=== PATIENT | female | born 1990 | race Hispanic/Latino ===

== ENCOUNTER 2023-07-06 10:32 | Emergency (ER) | payer SELFPAY ==
--- NOTE | 2023-07-06 11:08 | EDPHYS ---
Physician Documentation [facility] Name: Alida Somers Age: 33 yrs Sex: Female : 1990 Arrival Date: 07/06/2023 Time: 10:32 Bed IW3 Private MD: ED Physician Judson Zabala HPI: 07/06 11:10 This 33 yrs old Female presents to ER via Ambulatory with complaints of jh7 Ingrown Toenail. 11:10 Onset: The symptoms/episode began/occurred 1 week(s) ago. Associated signs and jh7 symptoms: Pertinent negatives: fever. Patient reports right ingrown toenail for the past week after her son stepped on her toe. Denies fever.. Historical: - Allergies: 11:08 No Known Allergies; hb - Home Meds: 11:08 None [Active]; hb - PMHx: 11:08 None; hb - PSHx: 11:08 section; hb - Immunization history:: Adult Immunizations up to date. - Social history:: Smoking status: Patient denies any tobacco usage or history of. ROS: 11:10 Constitutional: Negative for fever, chills, and weight loss, Eyes: Negative for injury, jh7 pain, redness, and discharge, Neck: Negative for injury, pain, and swelling, Cardiovascular: Negative for chest pain, palpitations, and edema, Respiratory: Negative for shortness of breath, cough, wheezing, and pleuritic chest pain, Abdomen/GI: Negative for abdominal pain, nausea, vomiting, diarrhea, and constipation, MS/Extremity: Negative for injury and deformity, Neuro: Negative for headache, weakness, numbness, tingling, and seizure. 11:10 Skin: Positive for R ingrown toenail. 11:10 All other systems are negative. Exam: 11:10 Constitutional: This is a well developed, well nourished patient who is awake, alert, jh7 and in no acute distress. Cardiovascular: Regular rate and rhythm with a normal S1 and S2. No gallops, murmurs, or rubs. Normal PMI, no JVD. No pulse deficits. Respiratory: Lungs have equal breath sounds bilaterally, clear to auscultation and percussion. No rales, rhonchi or wheezes noted. No increased work of breathing, no retractions or nasal flaring. MS/ Extremity: Pulses equal, no cyanosis. Neurovascular intact. Full, normal range of motion. Neuro: Awake and alert, GCS 15, oriented to person, place, time, and situation. Motor strength 5/5 in all extremities. Sensory grossly intact. Normal gait. 11:10 Skin: R great toenail: Toenail is discolored and beginning to fold inward on itself with mild erythema and swelling noted over the skin at the medial aspect of the nail. The area is tender to palpation.. Vital Signs: 11:06 BP 135 / 86; Pulse 79; Resp 16; Temp 97.7; Pulse Ox 100% on R/A; Weight 113.4 kg; hb Height 5 ft. 1 in. ; Pain 6/10; 11:06 Body Mass Index 47.24 (113.40 kg, 154.94 cm) hb 11:06 Pain Scale: Adult hb MDM: 10:52 Patient medically screened. [facility] 10:55 Differential diagnosis: ingrown toenail, cellulitis. Data reviewed: vital signs, nurses [facility] notes. Counseling: I had a detailed discussion with the patient and/or guardian regarding the historical points, exam findings, and any diagnostic results supporting the discharge/admit diagnosis, the need for outpatient follow up, a paper production engineer, to return to the emergency department if symptoms worsen or persist or if there are any questions or concerns that arise at home. Administered Medications: No medications were administered Disposition: 13:53 Co-signature as Attending Physician, Judson Zabala MD I reviewed the patient's care rn provided by the Advanced Practice Provider and agree with the diagnosis and treatment plan. Disposition Summary: 07/06/23 11:08 Discharge Ordered Location: Home [facility] Problem: new [facility] Symptoms: are unchanged [facility] Condition: Stable [facility] Diagnosis - Ingrown toenail [facility] Followup: [facility] - With: Private Physician - When: 2 - 3 days - Reason: Recheck today's complaints Discharge Instructions: - Discharge Summary Sheet [facility] - Ingrown Toenail [facility] Forms: - Medication Reconciliation Form [facility] - Thank You Letter [facility] - Antibiotic Education [facility] - Patient Portal Instructions [facility] - Leadership Thank You Letter [facility] Prescriptions: - mupirocin 2 % Topical ointment - apply 1 application by TOPICAL route 3 times per day for 7 days; 22 gram; jh7 Refills: 0, Product Selection Permitted - Bactrim DS 800-160 mg Oral Tablet - take 1 tablet by ORAL route every 12 hours for 10 days; 20 tablet; Refills: 0, jh7 Product Selection Permitted Signatures: Judson Zabala MD MD rn Baxter, Heather, RN RN Temi Calvo FNP METAL CHECKER 7 Corrections: (The following items were deleted from the chart) 11:08 11:08 PSHx: None; hb hb
--- NOTE | 2023-07-06 11:08 | ER ---
Nurse's Notes [facility] Name: Alida Somers Age: 33 yrs Sex: Female : 1990 Arrival Date: 07/06/2023 Time: 10:32 Bed IW3 Private MD: Diagnosis: Ingrown toenail Presentation: 07/06 11:06 Chief complaint: Right great toenail ingrown. Coronavirus screen: At this time, the hb client does not indicate any symptoms associated with coronavirus-19. Ebola Screen: No symptoms or risks identified at this time. Initial Sepsis Screen: Does the patient meet any 2 criteria? No. Patient's initial sepsis screen is negative. Does the patient have a suspected source of infection? No. Patient's initial sepsis screen is negative. Risk Assessment: Do you want to hurt yourself or someone else? Patient reports no desire to harm self or others. Onset of symptoms was July 06, 2023. 11:06 Method Of Arrival: Ambulatory hb 11:06 Acuity: LION 4 hb Triage Assessment: 11:08 General: Appears in no apparent distress. Behavior is calm, cooperative. Pain: Pain hb currently is 6 out of 10 on a pain scale. Neuro: Level of Consciousness is awake, alert, obeys commands, Oriented to person, place, time, situation. Cardiovascular: Patient's skin is warm and dry. Respiratory: Respiratory effort is even, unlabored, Respiratory pattern is regular, symmetrical. Historical: - Allergies: 11:08 No Known Allergies; hb - Home Meds: 11:08 None [Active]; hb - PMHx: 11:08 None; hb - PSHx: 11:08 section; hb - Immunization history:: Adult Immunizations up to date. - Social history:: Smoking status: Patient denies any tobacco usage or history of. Screenin:08 [facility] ED Fall Risk Assessment (Adult) Score/Fall Risk Level 0 - 2 = Low Risk hb Oriented to surroundings, Maintained a safe environment. Abuse screen: Denies threats or abuse. Denies injuries from another. Nutritional screening: No deficits noted. Tuberculosis screening: No symptoms or risk factors identified. Assessment: 11:08 General: See triage assessment. hb Vital Signs: 11:06 BP 135 / 86; Pulse 79; Resp 16; Temp 97.7; Pulse Ox 100% on R/A; Weight 113.4 kg; hb Height 5 ft. 1 in. ; Pain 04/10; 11:06 Body Mass Index 47.24 (113.40 kg, 154.94 cm) hb 11:06 Pain Scale: Adult hb ED Course: 10:33 Patient arrived in ED. rg4 10:52 Temi Ruiz FNP is [facility]. 7 10:52 Judson Zabala MD is Attending Physician. [facility] 11:08 Triage completed. hb 11:08 Arm band placed on. hb 11:08 Patient has correct armband on for positive identification. Provided Education on: . hb 11:08 No provider procedures requiring assistance completed. Patient did not have IV access hb during this emergency room visit. 11:13 Rain Stone, RN is Primary Nurse. hb Administered Medications: No medications were administered Medication: 11:08 VIS not applicable for this client. hb Outcome: 11:08 Discharge ordered by . [facility] 11:13 Discharged to home ambulatory. hb 11:13 Condition: stable 11:13 Discharge instructions given to patient, Instructed on discharge instructions, follow up and referral plans. medication usage, Demonstrated understanding of instructions, follow-up care, medications, wound care, Prescriptions given X 2. 11:13 Patient left the ED. hb Signatures: Rain Stone RN RN Cathi Cornejo 4 Temi uRiz FNP LIBRARY CUSTOMER SERVICE CLERK [facility] Corrections: (The following items were deleted from the chart) 11:08 11:08 PSHx: None; hb hb
[2023-07-06 11:41] VITALS: BP 135/86; TEMP 97.7; O2SAT 100
== END 2023-07-06 11:13 | disposition home or self-care (01) ==
LOC: ER 10:32
DX: L60.0 Ingrowing nail (principal)
CPT/HCPCS: 99283

== ENCOUNTER → 2023-12-18 | Emergency (ER) | payer SELFPAY ==
[~2023-12-18] MED LIST: NA CHLORIDE 0.9% 1,000 ML ONE
[2023-12-18 20:12] LABS: Absolute Lymphocytes (CBC) 2.6 K/uL (0.7-4.9); Hematocrit 37.4 % (36.0-45.0); Lymphocytes % 34.8 % (15.3-44.8); MCV 87.8 fL (80-100); MPV 7.2 fL (7.6-11.3); Platelets 330 thou/uL (152-406); RBC Red Blood Cell Count 4.26 M/uL (3.86-4.86)
[2023-12-18 20:17] LABS: Urine Bacteria None Seen /HPF (<20); Urine Bilirubin NEGATIVE (Negative); Urine Blood Negative (Negative); Urine Clarity Extremely Turbid (Clear); Urine Color Colorless (Yellow); Urine Glucose 4+ (Over) (Negative); Urine Protein NEGATIVE (Negative); Urine RBC <5 /HPF (None Seen); Urine Urobilinogen Normal (Normal)
[2023-12-18 20:26] LABS: Albumin 3.2 g/dL (3.4-5.0); Bilirubin Total 0.2 mg/dL (0.2-1.0); Potassium 3.5 mEq/L (3.5-5.1); Protein, Total 7.2 g/dL (6.4-8.2)
--- NOTE | 2023-12-18 21:03 | ER ---
Nurse's Notes [facility] Name: Alida Somers Age: 33 yrs Sex: Female : 1990 Arrival Date: 12/18/2023 Time: 19:10 Bed 14 Private MD: Diagnosis: Dizziness and giddiness Presentation: 12/18 19:21 Initial Sepsis Screen: Does the patient meet any 2 criteria? HR > 90 bpm. No. Patient's nj1 initial sepsis screen is negative. Does the patient have a suspected source of infection? No. Patient's initial sepsis screen is negative. Risk Assessment: Do you want to hurt yourself or someone else? Patient reports no desire to harm self or others. Onset of symptoms was December 18, 2023. 19:21 Method Of Arrival: Ambulatory [facility] 19:21 Acuity: LION [address] [facility] 19:21 Chief complaint: Patient states: [place] like she was going to pass out today. Slightly nj1 nauseous. Possible , at home test. 19:23 Coronavirus screen: Vaccine status: Patient reports being unvaccinated. Ebola Screen: [facility] Patient denies travel to an Ebola-affected area in the 21 days before illness onset. Historical: - Allergies: 19:24 No Known Allergies; [facility] - PMHx: 19:24 None; [facility] - PSHx: 19:24 section; section; section; [facility] - Immunization history:: Client reports having NOT received the Covid vaccine. - Social history:: Smoking status: Patient reports the use of cigarette tobacco products, denies chronic smoking, but will smoke occasionally. Screenin:02 [facility] ED Fall Risk Assessment (Adult) History of falling in the last 3 months, tm6 including since admission No falls in past 3 months (0 pts) Confusion or Disorientation No (0 pts) Intoxicated or Sedated No (0 pts) Impaired Gait No (0 pts) Mobility Assist Device Used No (0 pt) Altered Elimination No (0 pt) Score/Fall Risk Level 0 - 2 = Low Risk Oriented to surroundings, Maintained a safe environment. Abuse screen: Denies threats or abuse. Denies injuries from another. Nutritional screening: No deficits noted. Tuberculosis screening: No symptoms or risk factors identified. Assessment: 20:00 General: Appears in no apparent distress. Behavior is calm, cooperative. Neuro: Level tm6 of Consciousness is awake, alert, obeys commands, Oriented to person, place, time, situation, Reports dizziness, comes and goes. Cardiovascular: Capillary refill < 3 seconds Patient's skin is warm and dry. Respiratory: Airway is patent Respiratory effort is even, unlabored, Respiratory pattern is regular, symmetrical. 20:02 GI: Abdomen is round obese, Abd is non tender. : No signs and/or symptoms were tm6 reported regarding the genitourinary system. EENT: No signs and/or symptoms were reported regarding the EENT system. Derm: No signs and/or symptoms reported regarding the dermatologic system. Musculoskeletal: No signs and/or symptoms reported regarding the musculoskeletal system. 20:07 Pain: Complains of pain in suprapubic area Quality of pain is described as sharp, Is tm6 intermittent. Vital Signs: 19:21 BP 143 / 85; Pulse 92; Resp 18; Pulse Ox 99% on R/A; Weight 113.4 kg; Height 5 ft. 2 nj1 in. ; 21:43 BP 140 / 105; Pulse 82; Resp 19; Temp 97.5(TE); Pulse Ox 97% on R/A; Pain 0/10; tm6 19:21 Body Mass Index 45.73 (113.40 kg, 157.48 cm) nj1 21:43 Pain Scale: Adult tm6 ED Course: 19:15 Patient arrived in ED. gm2 19:16 Garrison Zuleta MD is Attending Physician. ec2 19:22 Triage completed. nj1 19:22 Arm band placed on left wrist. nj1 19:26 Sung Yancey, INEZ is Primary Nurse. tm6 19:59 Inserted saline lock: 22 gauge in right antecubital area, using aseptic technique. tm6 20:02 Patient has correct armband on for positive identification. Placed in gown. Bed in low tm6 position. Call light in reach. Side rails up X 1. Provided Education on: plan of care. Client placed on continuous cardiac and pulse oximetry monitoring. NIBP monitoring applied. Door closed. Noise minimized. Warm blanket given. 20:02 No provider procedures requiring assistance completed. tm6 20:03 HCG-Quantitative Sent. pf1 20:03 CBC with Diff Sent. pf1 20:03 CMP Sent. pf1 20:03 Lipase Sent. pf1 20:04 Test, Urine Sent. pf1 20:04 Urinalysis w/ reflexes Sent. pf1 21:43 IV discontinued, intact, bleeding controlled, No redness/swelling at site. Pressure tm6 dressing applied. Administered Medications: 20:07 Drug: NS 0.9% IV 1000 ml IV at 1 bolus Per protocol; 1000 mL bolus Route: IV; Rate: 1 tm6 bolus; Site: right antecubital; Medication: 20:02 VIS not applicable for this client. tm6 Outcome: 21:03 Discharge ordered by . ec2 21:43 Discharged to home ambulatory, tm6 21:43 Condition: stable 21:43 Discharge instructions given to patient, Instructed on discharge instructions, follow up and referral plans. Demonstrated understanding of instructions, follow-up care, 21:44 Patient left the ED. tm6 Signatures: Judie Rao, RN RN pf1 Romina Aguero RN RN nj1 Garrison Zuleta MD MD ec2 Blanca Avitia 2 Sung Yancey RN RN tm6 Corrections: (The following items were deleted from the chart) 19:24 19:21 BP 143 / 85; Pulse 92bpm; Resp 18bpm; Pulse Ox 99% RA; nj1 nj1 20:07 20:00 Pain: Denies pain. tm6 tm6
--- NOTE | 2023-12-18 21:03 | EDPHYS ---
Physician Documentation [facility] Name: Alida Somers Age: 33 yrs Sex: Female : 1990 Arrival Date: 12/18/2023 Time: 19:10 Bed 14 Private MD: ED Physician Garrison Zuleta HPI: 12/18 19:25 This 33 yrs old Female presents to ER via Ambulatory with complaints of ec2 Possible preg., Dizziness. 19:25 Patient arrives today due to concern for lightheadedness. Patient reports that she was ec2 cleaning and felt lightheaded like she was in a pass out. Reports no abdominal cramping as well. Patient reports no nausea or vomiting, no diarrhea symptoms, no cough or cold symptoms, no fevers or chills. Patient reports no other concerns. Patient that she is concerned she is as she had taken a test that over several hours had noted to be positive.. Historical: - Allergies: 19:24 No Known Allergies; nj1 - PMHx: 19:24 None; nj1 - PSHx: 19:24 section; section; section; nj1 - Immunization history:: Client reports having NOT received the Covid vaccine. - Social history:: Smoking status: Patient reports the use of cigarette tobacco products, denies chronic smoking, but will smoke occasionally. ROS: 19:25 Constitutional: as per hpi ec2 Exam: 19:25 Constitutional: GEN: NAD Head: atraumatic Eyes: EOMI Ears: External ears are ec2 normal. CV: regular rate LUNGS: no respiratory distress ABD: Obese, non-distended, soft, nontender, no guarding, not rigid SKIN: no evidence of rashes MSK: no evidence of trauma NEURO: moves all extremities equally Vital Signs: 19:21 BP 143 / 85; Pulse 92; Resp 18; Pulse Ox 99% on R/A; Weight 113.4 kg; Height 5 ft. 2 nj1 in. ; 21:43 BP 140 / 105; Pulse 82; Resp 19; Temp 97.5(TE); Pulse Ox 97% on R/A; Pain 0/10; tm6 19:21 Body Mass Index 45.73 (113.40 kg, 157.48 cm) nj1 21:43 Pain Scale: Adult tm6 MDM: 19:24 Patient medically screened. ec2 19:25 Data reviewed: vital signs, nurses notes. ED course: Patient arrives today for ec2 evaluation of lightheadedness. Examination remarkable for well-appearing nontoxic individual is otherwise in no acute distress. Will obtain lab work, urine studies and assess the patient. Evaluating for anemia, electrolyte symptoms, arrhythmia, . . 19:43 ED course: EKG independently reviewed and interpreted by me, shows normal sinus rhythm, ec2 rate of 74, no acute ST segment elevations, nonconcerning intervals.. 20:42 ED course: CBC reassuring, reassuring metabolic profile, negative testing, ec2 lipase within normal ranges, urine noninfectious appearing. . 21:02 ED course: Will discharge home. Return precautions given. No evidence of arrhythmia or ec2 other acute findings causing the patient's reported lightheadedness.. 12/18 19:24 Order name: CBC with Diff; Complete Time: 20:42 ec2 12/18 19:24 Order name: CMP; Complete Time: 20:42 ec2 12/18 19:24 Order name: Lipase; Complete Time: 20:42 ec2 12/18 19:24 Order name: Test, Urine; Complete Time: 20:42 ec2 12/18 19:24 Order name: Urinalysis w/ reflexes; Complete Time: 20:18 ec2 12/18 19:56 Order name: HCG-Quantitative; Complete Time: 21:43 ec2 12/18 19:24 Order name: IV Saline Lock; Complete Time: 19:59 ec2 12/18 19:24 Order name: Labs collected and sent; Complete Time: 20:02 ec2 12/18 19:24 Order name: EKG - Nurse/Tech; Complete Time: 19:46 ec2 Administered Medications: 20:07 Drug: NS 0.9% IV 1000 ml IV at 1 bolus Per protocol; 1000 mL bolus Route: IV; Rate: 1 tm6 bolus; Site: right antecubital; Disposition Summary: 12/18/23 21:03 Discharge Ordered Notes: Location: Home ec2 Condition: Stable ec2 Diagnosis - Dizziness and giddiness ec2 Followup: ec2 - With: Private Physician - When: - Reason: Re-evaluation by your physician Discharge Instructions: - Discharge Summary Sheet ec2 - Near-Syncope, [id number] ec2 Forms: - Thank You Letter ec2 - Patient Portal Instructions ec2 - Leadership Thank You Letter ec2 Signatures: Dispatcher [employer] EDRomina Gregg RN RN nj1 Garrison Zuleta MD MD ec2 Sung Yancey RN RN tm6 Corrections: (The following items were deleted from the chart) 20:58 19:56 [employer][email or web address] ordered. EDMS EDMS
[2023-12-18 22:04] VITALS: BP 140/105; TEMP 97.5; O2SAT 97
--- NOTE | 2023-12-20 10:59 | EKG ---
Test Date: 2023-12-18 Test Time: 19:41:33 Automotive General Sales Manager: ZULAY MEASUREMENT RESULTS: Intervals: Rate: 74 ME: 132 QRSD: 98 QT: 372 QTc: 412 Gans: P: 37 ME: 132 QRS: 62 T: 51 INTERPRETIVE STATEMENTS: Normal sinus rhythm with sinus arrhythmia Normal ECG No previous ECG available for comparison Electronically Signed On 12-20-23 10:56:34 LICENSED INSURANCE AGENT by Hardeep Rivera
== END ==
LOC: ER 19:10
DX: R42 Dizziness and giddiness (principal)
CPT/HCPCS: 36415; 80053; 81001; 81025; 83690; 84702; 85025; 93005; 99284; J7030